=== PATIENT | female | born 1955 | race Two or more races ===

== ENCOUNTER 2020-04-04 14:31 | Emergency (ER) | payer OTHER ==
[~2020-04-04] VITALS: Ht 152.4 cm; Wt 62.6 kg
[2020-04-04] MEDS ORDERED: JANUMET 50-1,01 EACH PO (14:45)
[2020-04-04] MEDS ORDERED: ZESTRIL20 MG PO (14:45)
[2020-04-04] MEDS ORDERED: JARDIANCE25 MG PO (14:45)
[2020-04-04] MEDS ORDERED: ATORVASTATIN CA20 MG PO (14:46)
[2020-04-04] MEDS ORDERED: AMLODIPINE-OLM1 EACH PO (14:46)
== END 2020-04-04 19:16 | disposition home or self-care (01) ==
LOC: ER 14:31
DX: R10.32 Left lower quadrant pain (principal); E67.1 Hypercarotenemia; R17 Unspecified jaundice